=== PATIENT | female | born 1950 | race Caucasian/White ===

== ENCOUNTER → 2024-01-24 08:09 | Outpatient (REF) | payer MEDICARE, OTHER, SELFPAY ==
[2024-01-24 08:33] LABS: Urine Albumin Trace (Neg - Trace); Urine Bilirubin 1+ (Negative); Urine Character Clear (Clear); Urine Color Yellow; Urine Glucose Negative (Negative); Urine Ketone Negative (Negative); Urine Leukocyte 2+ (Negative); Urine Nitrite Negative (Negative); Urine Occult Blood 1+ (Negative); Urine Urobilinogen Negative (Neg - 1+)
[2024-01-24 08:34] LABS: % Basophils 0.8 % (0-2); % Eosinophils 7.2 % (0-6); % Immature Granulocytes 0.3 % (0-0.5); % Lymphocytes 23.6 % (20.5-51.1); % Monocytes 7.3 % (1.7-9.3); % Neutrophils 60.8 % (42.2-75.2); Absolute Basophils 0.1 10^3/uL (0-0.2); Absolute Eosinophils 0.5 10^3/uL (0-0.7); Absolute Lymphocytes 1.8 10^3/uL (1.2-3.4); Absolute Monocytes 0.6 10^3/uL (0.1-0.6); Absolute Neutrophils 4.6 10^3/uL (1.4-6.5); Hemoglobin 14.6 g/dL (12.0-16.0); Mean Corp Hgb Conc. 33.2 g/dL (33.0-37.0); Mean Corpuscular Hgb 29.5 pg (27.0-31.0); Mean Corpuscular Volume 88.9 fL (81.0-99.0); Mean Platelet Volume 8.8 fL (7.4-10.4); Nucleated Red Blood Cells % 0 %; Platelet Count 214 10^3/uL (130-400); Red Blood Cell Count 4.95 10^6/uL (4.20-5.40); Red Cell Dist. Width 14.4 % (11.5-14.5); White Blood Cell Count 7.5 10^3/uL (4.8-10.8)
[2024-01-24 08:47] LABS: Urine Squamous Cell 0-2 /LPF (Few)
[2024-01-24 08:48] LABS: Urine Bacteria Few (Negative); Urine Mucus Few
[2024-01-24 09:06] LABS: ALT (SGPT) 42 U/L (0-35); AST (SGOT) 44 U/L (14-36); Albumin 4.6 g/dl (3.5-5.0); Alkaline Phosphatase 61 U/L (38-126); Blood Urea Nitrogen 24 mg/dl (7-17); Calcium 9.7 mg/dl (8.4-10.2); Carbon Dioxide 28 mmol/L (22-30); Chloride 105 mmol/L (98-107); Glucose 99 mg/dl (70-99); HDL Cholesterol 54 mg/dl; LDL Cholesterol, Calculated 80 mg/dl; Potassium 4.3 mmol/L (3.5-5.1); Sodium 138 mmol/L (135-145); Total Bilirubin 0.8 mg/dl (0.2-1.3); Total Cholesterol 163 mg/dl (50-199); Total Protein 7.3 g/dl (6.3-8.2); Triglyceride 147 mg/dl (10-149); Very Low Density Lipoprotein 29 mg/dl (0-30); eGFR > 60.00
[2024-01-24 09:27] LABS: Glycohemoglobin (HgbA1c) 5.9 % (4.0-5.6)
[2024-01-24 09:40] LABS: Vitamin D, 25-OH*** 60.6 ng/mL (30-80)
== END ==
LOC: REG 08:09
PROVIDERS: ATTENDING PHYSICIAN Nurse Practitioner Family
DX: Z13.0 Encounter for screening for diseases of the blood and blood-forming organs and certain disorders involving the immune mechanism (principal); E78.2 Mixed hyperlipidemia; R73.03 Prediabetes; E55.9 Vitamin D deficiency, unspecified; Z13.89 Encounter for screening for other disorder
CPT/HCPCS: 36415; 80053; 80061; 81003; 81015; 82306; 83036; 85025

== ENCOUNTER → 2024-04-13 12:57 | Outpatient (REF) | payer MEDICARE, OTHER, SELFPAY | LOC: WDC 12:57 | PROVIDERS: ATTENDING PHYSICIAN Nurse Practitioner Family | DX: Z12.31 Encounter for screening mammogram for malignant neoplasm of breast (principal) | CPT/HCPCS: 77063; 77067 ==

== ENCOUNTER 2024-06-07 16:23 | Emergency (ER) | payer MEDICARE, OTHER, SELFPAY ==
[2024-06-07 16:24] VITALS: BP 129/93
[2024-06-07 16:55] LABS: % Basophils 0.6 % (0-2); % Eosinophils 2.8 % (0-6); % Immature Granulocytes 0.4 % (0-0.5); % Lymphocytes 27.6 % (20.5-51.1); % Monocytes 7.7 % (1.7-9.3); % Neutrophils 60.9 % (42.2-75.2); Absolute Basophils 0.1 10^3/uL (0-0.2); Absolute Eosinophils 0.2 10^3/uL (0-0.7); Absolute Lymphocytes 2.1 10^3/uL (1.2-3.4); Absolute Monocytes 0.6 10^3/uL (0.1-0.6); Absolute Neutrophils 4.7 10^3/uL (1.4-6.5); Hematocrit 43.7 % (37.0-47.0); Hemoglobin 14.8 g/dL (12.0-16.0); Mean Corp Hgb Conc. 33.9 g/dL (33.0-37.0); Mean Corpuscular Hgb 29.7 pg (27.0-31.0); Mean Corpuscular Volume 87.6 fL (81.0-99.0); Mean Platelet Volume 9.1 fL (7.4-10.4); Nucleated Red Blood Cells % 0 %; Platelet Count 225 10^3/uL (130-400); Red Blood Cell Count 4.99 10^6/uL (4.20-5.40); Red Cell Dist. Width 14.1 % (11.5-14.5); White Blood Cell Count 7.8 10^3/uL (4.8-10.8)
[2024-06-07 17:03] LABS: ALT (SGPT) 39 U/L (0-35); AST (SGOT) 47 U/L (14-36); Albumin 4.8 g/dl (3.5-5.0); Alkaline Phosphatase 72 U/L (38-126); Blood Urea Nitrogen 15 mg/dl (7-17); Calcium 10.1 mg/dl (8.4-10.2); Carbon Dioxide 23 mmol/L (22-30); Chloride 103 mmol/L (98-107); Glucose 111 mg/dl (70-99); Potassium 3.9 mmol/L (3.5-5.1); Sodium 137 mmol/L (135-145); Total Bilirubin 1.3 mg/dl (0.2-1.3); Total Protein 7.5 g/dl (6.3-8.2); eGFR > 60.00
[2024-06-07 17:40] LABS: Lipase 76 U/L (23-300)
--- NOTE | 2024-06-07 18:28 | ED.GENMED ---
History of Present Illness
General
Chief Complaint: Abdominal Pain
Source: patient
Exam Limitations: none
Time Seen by Provider: 06/07/24 18:02
History of Present Illness
History of Present Illness:
This is a 74 year old female that comes in with c/o abd pain and diarrhea. States that she has had diarrhea that started about 6 months ago. States that today it was worse then ever. States that she has abd pain and she feels that her abd is
bloated. States that she is nauseated and had diarrhea buot 7-8 times. States that she has felt cold and lightheaded. Denies any fever, chest pain, SOB, vomiting, headache, urinary burning.
Past History
Past History
ED Past Medical History: Hypercholesterolemia and Psychiatric; Negative Asthma, HTN or NIDDM
ED Past Surgical History: Appendectomy, Gynecological (Tubal) and Other (Cataracts, Right retina repair, Sinus surgery)
Social History
Tobacco: Non-smoker
Alcohol: Occasional
Personal:
Living: alone
Review of Systems
Review of Systems
All Other Systems: ROS reviewed and negative except as documented in HPI and ROS
Constitutional: Reports other ([place] cold); Denies fever
EENT: Reports no symptoms
Respiratory: Reports no symptoms; Denies cough or trouble breathing
Cardiac: Reports no symptoms; Denies chest pain
ABD/GI: Reports abdominal pain, nausea and diarrhea; Denies vomiting
: Reports no symptoms; Denies dysuria, frequency or urgency
Musculoskeletal: Reports no symptoms
Skin: Reports no symptoms
Neurological: Reports other (Lightheaded); Denies dizzy or headache
Psychiatric: Reports no symptoms
Phy Exam
General Physical Exam
General Presentation: no apparent distress
General age: appears stated age
General Skin: warm and dry
General Habitus: elderly
General Mental: alert
General Hydration: appears well hydrated
ENT Exam
ENT Exam: TM's normal, pharynx normal and neck supple
Eye Exam
Eye Exam: EOMI
Cardiovascular Exam
Cardiovascular Exam: regular rate/rhythm, no edema, no murmur and normal peripheral pulses
Pulmonary Exam
Pulmonary Exam: lungs clear, no respiratory distress, no rales, chest non tender, no crackles, no rhonchi, no wheezing and no cough
Gastrointestinal Exam
Gastrointestinal Exam: normal bowel sounds, soft, no organomegaly, no pulsatile mass, non distended and tender (Generalized tenderness with palpation)
Musculoskeletal Exam
Musculoskeletal Exam: full ROM and no edema
Skin Exam
Skin Exam: normal color, warm/dry, no rash and no petechia
Psychiatric Exam
Psychiatric Exam: normal mood/affect
Course
Orders/Labs/Results
Orders:
Orders
06/07/24 16:27
EKG [Electrocardiogram (*1)] Urgent
Reason for Study: Tachycardia
06/07/24 16:28
EKG- Treatment ONCE
06/07/24 16:43
CBC/With Diff [Complete Blood Count/With Diff] Urgent
CMP [Comprehensive Metabolic Panel] Urgent
Lactic Acid Urgent
Lipase Urgent
06/07/24 18:28
CT Abd/pel W Iv And Oral Contr Urgent
Comment:
Reason For Exam: Generalized abd pain
0.9% Sodium Chloride 1000 ml [Nss] 1,000 ml IV BOLUS
Iohexol [Omnipaque] See Protocol PO NOW STA
06/07/24 18:30
STOOL [C difficile Antigen & Toxins] Urgent
TOOTIE Source: Feces/Stool
Specimen Description:
Stool Culture Urgent
TOOTIE Source: Feces/Stool
Specimen Description:
Stool For WBC Urgent
TOOTIE Source: Feces/Stool
Specimen Description:
Ondansetron Injectable [Zofran] 4 mg IV NOW STA
Abnormal Lab Results
06/07/24
16:43
Glucose 111 H mg/dl
(70-99)
AST 47 H U/L
(14-36)
ALT 39 H U/L
(0-35)
06/07/24 16:43
06/07/24 16:43
Glucose nonfasting. AST/ ALT slightly elevated. Lipase normal at 76
Vital Signs
Initial and Last Documented VS:
Initial Vital Signs
Temp Pulse Resp BP Pulse Ox
97.5 F 128 18 129/93 98
06/07/24 16:24 06/07/24 16:24 06/07/24 16:24 06/07/24 16:24 06/07/24 16:24
Last Documented Vital Signs
Temp Pulse Resp BP Pulse Ox
97.5 F 128 18 129/93 98
06/07/24 16:24 06/07/24 16:24 06/07/24 16:24 06/07/24 16:24 06/07/24 16:24
MDM/Problems Addressed
Differential Diagnosis Includes:
Colitis, Enteritis, IBS
MDM/Problems Addressed:
This is a 74 year old female that comes in with c/o abd pain and diarrhea. States that the diarrhea started 6 months ago and has gotten worse. States that she has abd pain, bloating.
Will get labs, CT scan, IV fluids. Offered pain medication and patient refused
Called by Nursing staff as patient was dressed and standing at the door stating that she is going to leave. Back to talk with patient. State that she drove herself and she can't stay as she can't drive in he dark. Explained to patient that she was
very tender and this was concernig. Explained that this may be something that could just be treated with antibiotics. Patient refuse to stay and Signed out AMA.
Chronic conditions affecting care:
NA
Acute Exacerbation and/or Progression of Chronic Illness:
NA
*Pulse Oximetry
Patient hypoxic: no
*EKG
Interpreted by ED Provider?: NA
Rate: EKG- N/A
*Dedenter Interpretation
Rate: Dedenter- N/A
*Critical Care Note
Total Time (30-74mins, 75-104mins- exclusive of procedures): Not Applicable
ED Attending Note
-
Portions of this chart may have been created with voice recognition software.� Occasional wrong word or��sound alike� substitutions may have occurred due to the inherent limitations of voice recognition software.
Discharge Plan
Departure
Patient Disposition: Against Medical Advice
Date of Disposition: 06/07/24
Time of Disposition: 18:58
Patient with high blood pressure during this ER visit?: Yes
Condition: Good
Covid-19: Not Applicable
Discharge Problem:
Abdominal pain, Diarrhea
Instructions: Abdominal Pain, BLOOD PRESSURE, Diarrhea in teens and adults
Prescriptions:
No Action
multivitamin [Daily Multiple] 1 EACH tablet
1 ea PO DAILY
simvastatin 20 MG tablet
20 mg PO DAILY
docosahexaenoic acid-epa 1 CAP capsule
1 cap PO DAILY
Calcium
2 tablets PO DAILY
fluticasone propionate 1 SPRAY spray,suspension
1 spray intranasal DAILYPRN PRN (Reason: allergies)
escitalopram oxalate 5 MG tablet
5 mg PO DAILY
Vitamin D
1 tab PO DAILY
cephalexin 500 MG capsule
500 mg PO TID Qty: 20 0RF
polymyxin B sulf-trimethoprim [Polytrim] 10 ML drops
1 drp OP Q3H Qty: 10 0RF
Rx Instructions:
1 drop to affect eye every 3 hours while awake for 1 week
hydrocodone-acetaminophen 1 TABLET tablet
1 tab PO Q4HPRN PRN (Reason: pain) Qty: 15 0RF
valacyclovir [Valtrex] 1,000 MG tablet
1,000 mg PO Q8 Qty: 20 0RF
oxycodone-acetaminophen 5 MG/325 MG tablet
1 tab PO Q6HPRN PRN (Reason: pain) Qty: 10 0RF
Referrals:
Nnamdi Ramos DO [Family Provider] -
Interventions
Interventions:
*Risk Screen - Suicide Last Done: 06/07/24 16:24
*General Assessment Last Done: 06/07/24 16:24
*Neglect/Abuse Screening Last Done: 06/07/24 16:24
Discharge Date and Time
Print Language: PERSIAN
== END 2024-06-07 19:06 | disposition left against medical advice (07) ==
LOC: EMR 16:23
PROVIDERS: Student in an Organized Health Care Education/Training Program; EMERGENCY PHYSICIAN Emergency Medicine; FAMILY PHYSICIAN Family Medicine
DX: R10.9 Unspecified abdominal pain (principal); R19.7 Diarrhea, unspecified; E78.00 Pure hypercholesterolemia, unspecified; Z90.49 Acquired absence of other specified parts of digestive tract
CPT/HCPCS: 99283; 96374; 96361; 80053; 83605; 83690; 85025; 93005

== ENCOUNTER → 2024-06-13 11:40 | Outpatient (REF) | payer MEDICARE, OTHER, SELFPAY | LOC: RAD 11:40 | PROVIDERS: ATTENDING PHYSICIAN Nurse Practitioner Family | DX: R10.84 Generalized abdominal pain (principal); R19.4 Change in bowel habit | CPT/HCPCS: 74177; Q9967 ==

== ENCOUNTER → 2024-06-23 08:45 | Outpatient (REF) | payer MEDICARE, OTHER, SELFPAY | LOC: REG 08:45 | PROVIDERS: ATTENDING PHYSICIAN Internal Medicine Gastroenterology; FAMILY PHYSICIAN Nurse Practitioner Family | DX: R19.7 Diarrhea, unspecified (principal) | CPT/HCPCS: 36415; 83993; 87045; 87046; 87177; 87209; 87324; 87328; 87329; 87427; 87449 ==

== ENCOUNTER → 2024-07-08 07:47 | Outpatient (REF) | payer MEDICARE, OTHER, SELFPAY ==
[2024-07-08 08:56] LABS: % Basophils 0.9 % (0-2); % Eosinophils 3.6 % (0-6); % Immature Granulocytes 0.2 % (0-0.5); % Lymphocytes 28.9 % (20.5-51.1); % Monocytes 8.1 % (1.7-9.3); % Neutrophils 58.3 % (42.2-75.2); Absolute Basophils 0.1 10^3/uL (0-0.2); Absolute Eosinophils 0.2 10^3/uL (0-0.7); Absolute Lymphocytes 1.5 10^3/uL (1.2-3.4); Absolute Monocytes 0.4 10^3/uL (0.1-0.6); Absolute Neutrophils 3.1 10^3/uL (1.4-6.5); Hematocrit 40.6 % (37.0-47.0); Hemoglobin 13.6 g/dL (12.0-16.0); Mean Corp Hgb Conc. 33.5 g/dL (33.0-37.0); Mean Corpuscular Hgb 28.8 pg (27.0-31.0); Mean Corpuscular Volume 85.8 fL (81.0-99.0); Mean Platelet Volume 9.9 fL (7.4-10.4); Nucleated Red Blood Cells % 0 %; Platelet Count 204 10^3/uL (130-400); Red Blood Cell Count 4.73 10^6/uL (4.20-5.40)
[2024-07-08 09:18] LABS: ALT (SGPT) 53 U/L (0-35); AST (SGOT) 52 U/L (14-36); Albumin 4.3 g/dl (3.5-5.0); Alkaline Phosphatase 51 U/L (38-126); Blood Urea Nitrogen 14 mg/dl (7-17); Calcium 10.2 mg/dl (8.4-10.2); Carbon Dioxide 29 mmol/L (22-30); Chloride 103 mmol/L (98-107); Glucose 95 mg/dl (70-99); Potassium 3.8 mmol/L (3.5-5.1); Sodium 143 mmol/L (135-145); Total Bilirubin 1.5 mg/dl (0.2-1.3); Total Protein 6.4 g/dl (6.3-8.2); eGFR > 60.00
[2024-07-08 09:23] LABS: C-Reactive Protein < 5.00 mg/L (0.0-10.00)
[2024-07-08 10:00] LABS: TSH Reflex To Free T4 1.01 uIU/ml (0.47-4.68)
[2024-07-08 10:17] LABS: Erythrocyte Sed Rate 11 mm/hour (0-20)
[2024-07-09 23:07] LABS: IgA 165 mg/dl (70-400)
[2024-07-11 01:48] LABS: Endomysial IgA Antibody Titer <1:10 (<1:10)
== END ==
LOC: REG 07:47
PROVIDERS: ATTENDING PHYSICIAN Physician Assistant; FAMILY PHYSICIAN Family Medicine
DX: R19.4 Change in bowel habit (principal)
CPT/HCPCS: 36415; 80053; 82784; 83516; 84443; 85025; 85652; 86140; 86231

== ENCOUNTER → 2024-08-04 06:19 | Day surgery (SDC) | payer MEDICARE, OTHER, SELFPAY | LOC: GI 06:19 | PROVIDERS: ATTENDING PHYSICIAN Internal Medicine Gastroenterology | DX: K57.30 Diverticulosis of large intestine without perforation or abscess without bleeding (principal); K64.8 Other hemorrhoids; R19.4 Change in bowel habit; R19.7 Diarrhea, unspecified; K44.9 Diaphragmatic hernia without obstruction or gangrene; K31.7 Polyp of stomach and duodenum; R10.13 Epigastric pain | CPT/HCPCS: 45380; 43239; 88305; 88342 ==

== ENCOUNTER → 2025-05-10 14:35 | Outpatient (REF) | payer MEDICARE, OTHER, SELFPAY | LOC: WDC 14:35 | PROVIDERS: ATTENDING PHYSICIAN Nurse Practitioner Family | DX: Z12.31 Encounter for screening mammogram for malignant neoplasm of breast (principal) | CPT/HCPCS: 77063; 77067 ==

== ENCOUNTER → 2025-06-29 10:09 | Outpatient (REF) | payer MEDICARE, OTHER, SELFPAY ==
[2025-06-29 12:13] LABS: Hepatitis B Surface Antigen Negative (Negative)
[2025-06-29 12:23] LABS: ALT (SGPT) 30 U/L (0-35); AST (SGOT) 29 U/L (14-36); Albumin 4.6 g/dl (3.5-5.0); Alkaline Phosphatase 41 U/L (38-126); Iron 134 ug/dl (37-170); Total Protein 7.1 g/dl (6.3-8.2)
[2025-06-29 12:31] LABS: Hepatitis A Antibody, Total Negative (Negative); Hepatitis C Antibody Negative (Negative)
[2025-06-29 12:32] LABS: Total Iron Binding Capacity 340 ug/dl (265-497)
[2025-06-29 12:54] LABS: Ferritin 18.9 ng/ml (11.1-264.0)
== END ==
LOC: REG 10:09
PROVIDERS: FAMILY PHYSICIAN Nurse Practitioner Family
DX: R79.89 Other specified abnormal findings of blood chemistry (principal)
CPT/HCPCS: 36415; 80076; 82103; 82390; 82728; 83516; 83540; 83550; 86015; 86038; 86376; 86381; 86704; 86706; 86708; 86709; 86803; 87340

== ENCOUNTER → 2025-10-01 07:35 | Outpatient (REF) | payer MEDICARE, OTHER, SELFPAY ==
[2025-10-01 08:56] LABS: Hematocrit 42.9 % (37.0-47.0); Hemoglobin 14.3 g/dL (12.0-16.0); Mean Corp Hgb Conc. 33.3 g/dL (33.0-37.0); Mean Corpuscular Volume 88.5 fL (81.0-99.0); Nucleated Red Blood Cells % 0 %; Platelet Count 207 10^3/uL (130-400); Red Cell Dist. Width 13.2 % (11.5-14.5)
[2025-10-01 09:00] LABS: Urine Character Clear (Clear)
[2025-10-01 10:24] LABS: Glycohemoglobin (HgbA1c) 5.6 % (4.0-5.9)
[2025-10-01 10:26] LABS: ALT (SGPT) 28 U/L (0-35); AST (SGOT) 29 U/L (14-36); Albumin 4.6 g/dl (3.5-5.0); Alkaline Phosphatase 54 U/L (38-126); Blood Urea Nitrogen 19 mg/dl (7-17); Calcium 10.0 mg/dl (8.4-10.2); Carbon Dioxide 28 mmol/L (22-30); Chloride 103 mmol/L (98-107); Glucose 96 mg/dl (70-99); HDL Cholesterol 55 mg/dl; LDL Cholesterol, Calculated 108 mg/dl; Potassium 4.2 mmol/L (3.5-5.1); Sodium 136 mmol/L (135-145); Total Protein 7.5 g/dl (6.3-8.2); Very Low Density Lipoprotein 18 mg/dl (0-30); eGFR > 60.00
[2025-10-01 10:39] LABS: Urine White Cell 16-20 /HPF (0-5)
[2025-10-01 11:28] LABS: Vitamin D, 25-OH*** 51.3 ng/mL (30-80)
== END ==
LOC: REG 07:35
PROVIDERS: ATTENDING PHYSICIAN Nurse Practitioner Family
DX: E55.9 Vitamin D deficiency, unspecified (principal); E78.2 Mixed hyperlipidemia; Z13.0 Encounter for screening for diseases of the blood and blood-forming organs and certain disorders involving the immune mechanism; R73.03 Prediabetes; Z13.89 Encounter for screening for other disorder
CPT/HCPCS: 36415; 80053; 80061; 81003; 81015; 82306; 83036; 85025